=== PATIENT | female | born 1945 | race Caucasian/White ===

== ENCOUNTER → 2020-06-21 | Outpatient (CLI) | payer MEDICARE ==
[~2020-06-21] MED LIST: CITA40TA12 PO; LETR2.5T3 PO; LEVO50TA5 PO
== END ==
LOC: LAB 11:44
PROVIDERS: ATTEND Nurse Anesthetist, Certified Registered
DX: Z01.812 Encounter for preprocedural laboratory examination (principal); Z86.010 Personal history of colon polyps; Z20.828 Contact with and (suspected) exposure to other viral communicable diseases
CPT/HCPCS: U0003

== ENCOUNTER → 2020-07-28 | Outpatient (CLI) | payer MEDICARE | LOC: LAB 08:40 | PROVIDERS: ATTEND Nurse Anesthetist, Certified Registered | DX: Z01.812 Encounter for preprocedural laboratory examination (principal); Z86.010 Personal history of colon polyps; Z20.828 Contact with and (suspected) exposure to other viral communicable diseases | CPT/HCPCS: U0003 ==

== ENCOUNTER → 2020-08-01 | Day surgery (SDC) | payer MEDICARE ==
[~2020-08-01] MED LIST changes: +IPRATRPIUM/ALBUTEROL 0.5/2.5MG 3 ML NEBU. NEB PRN; +IV RINGERS SOLUTION,LACTATED 1,000 ML IV SCH; +LIDOCAINE 2% PF 5 ML VIAL. ONE; +MIDAZOLAM HCL PF 2 MG/2 ML VIAL. IV ONE; +PROPOFOL 10,000 MCG/ML (20ML) VIAL IV ONE
[2020-08-01 10:50] VITALS: BP 107/52
--- NOTE | 2020-08-03 14:09 | PATHOLOGY ---
[facility] Accession Number: [id number] . 01 Material submitted: . rectum - RECTAL POLYP . 01 Clinical history: . SCREENING COLONSCOPY COLONOSCOPY . 02 Diagnosis: Colorectal biopsy, rectal polyp: - Hyperplastic polyp. ([facility] 08/03/2020) . . [facility] 08/03/2020 0914 Local . 02 Comment: There are no adenomatous changes or evidence of malignancy. ([facility] 08/03/2020) . 02 Electronically signed: . Jackson Resendiz MD, Pathologist NPI- [id number] . 01 Gross description: . The specimen is received in formalin, labeled "Jaimezgishala, Olya", "rectal polyp". Received is a single segment of pale balderas soft tissue measuring 0.2 cm. The specimen is entirely submitted in cassette A1.([facility]; 08/02/2020) [facility]ES[facility]/TERRIE 08/02/2020 1616 Local . 02 Microscopic: . . . 02 Pathologist provided ICD-10: K62.1 . 02 CPT . 072267 Specimen Comment: A courtesy copy of this report has been sent [phone] Specimen Comment: [phone] Specimen Comment: Report sent to / DR LUND Performed at: 01 [facility] [address], [place] [id number] MD Matthieu Sellers MD Phone: [phone] Performed at: 02 [facility] [address] [place], [place] [id number] MD Jackson Resendiz MD Phone: [phone]
== END | disposition home or self-care (01) ==
LOC: SURG 09:00
PROVIDERS: ATTEND Emergency Medicine
DX: Z12.11 Encounter for screening for malignant neoplasm of colon (principal); K62.1 Rectal polyp; K57.30 Diverticulosis of large intestine without perforation or abscess without bleeding; K63.89 Other specified diseases of intestine; M19.90 Unspecified osteoarthritis, unspecified site; F41.9 Anxiety disorder, unspecified; F32.9 Major depressive disorder, single episode, unspecified; Z86.010 Personal history of colon polyps; Z98.890 Other specified postprocedural states; Z87.442 Personal history of urinary calculi; Z79.899 Other long term (current) drug therapy; Z90.49 Acquired absence of other specified parts of digestive tract
CPT/HCPCS: 45380; J2001; J2704; J7120; 88305